=== PATIENT | female | born 1975 | race African-American/Black ===

== ENCOUNTER 2016-09-14 00:34 | Emergency (ER) | payer MEDICAID ==
[~2016-09-14 00:34] MED LIST: ESGIC CAPSULE1 EACH PO; NO HOME MEDICATION XX; OMEPRAZOLE20 M3 PO; TOPIRAMATE25 M3 PO; ULTRAM50 M1 PO; ZITHROMAX250 M1 PO; ZOFRAN4 M2 PO
[2016-09-14] MEDS ORDERED: PEPCID20 M1 PO (02:18)
[2016-12-30] MEDS ORDERED: NO HOME MEDICATION XX (00:14)
[2016-12-30] MEDS ORDERED: ZOFRAN4 M2 PO (00:18)
[2016-12-30] MEDS ORDERED: KEFLEX500 M4 PO (01:43)
== END 2016-09-14 02:27 ==
LOC: EDMED 00:34
DX: J02.9 Acute pharyngitis, unspecified (principal)